=== PATIENT | female | born 1935 | race Caucasian/White ===

== ENCOUNTER 2017-07-11 14:52 | Observation (INO) | payer MEDICARE ==
[2017-07-11 15:41] LABS: ABSOLUTE EOSINOPHILS # (AUTO) 0.2 10^3/uL (0.0-0.6); ABSOLUTE LYMPHOCYTES (AUTO) 1.6 10^3/uL (0.5-4.7); ABSOLUTE MONOCYTES (AUTO) 0.6 10^3/uL (0.1-1.4); ABSOLUTE NEUT (AUTO) 6.9 10^3/uL (1.7-8.2); BASOPHILS % (AUTO) 0.5 % (0-2); EOSINOPHILS % (AUTO) 1.7 % (0-6); HEMATOCRIT 37.8 % (36.0-47.0); HEMOGLOBIN 13.2 g/dL (12.0-15.5); HGB HCT DIFFERENCE 1.8; LYMPHOCYTES % (AUTO) 17.3 % (13-45); MEAN CORPUSCULAR HEMOGLOBIN 29.9 pg (27.0-33.4); MEAN CORPUSCULAR HGB CONC 34.8 g/dL (32.0-36.0); MEAN CORPUSCULAR VOLUME 86 fl (80-97); MONOCYTES % (AUTO) 6.8 % (3-13); RED CELL DISTRIBUTION WIDTH 14.5 % (11.5-14.0); SEGMENTED NEUTROPHILS % (AUTO) 73.7 % (42-78); WHITE BLOOD COUNT 9.4 10^3/uL (4.0-10.5)
--- NOTE | 2017-07-11 15:43 | ER Document Report ---
ED General - General Chief Complaint: S/S of Possible Stroke Stated Complaint: SLURRED SPEECH Time Seen by Provider: 07/11/17 15:10 Information source: Patient Notes: This is a 82-year-old female history of CVA affecting the left side. This happened 17 years ago. Otherwise pretty unremarkable health. Did have a trauma within the last 2 months. Has pelvic fractures. Was hospitalized in [facility]. Has been home for approximately 2 weeks. Began eating lunch today approximately 4 hours prior to arrival. Began having trouble keeping the soup in her mouth and had some slurred speech. She did not really want to tell anybody. Finally told her and then her forced her to come in. Patient states that all of her symptoms have resolved. - HPI Onset: Just prior to arrival Onset/Duration: Sudden Quality of pain: No pain Associated symptoms: None Exacerbated by: Denies Relieved by: Denies Similar symptoms previously: Yes Past Medical History - General Information source: Patient - Social History Smoking Status: Never Smoker Frequency of alcohol use: None Drug Abuse: None Family History: Reviewed & Not Pertinent Review of Systems - Review of Systems Constitutional: No symptoms reported EENT: No symptoms reported Cardiovascular: No symptoms reported Respiratory: No symptoms reported Gastrointestinal: No symptoms reported Genitourinary: No symptoms reported Female Genitourinary: No symptoms reported Musculoskeletal: No symptoms reported Skin: No symptoms reported Hematologic/Lymphatic: No symptoms reported Neurological/Psychological: See HPI Physical Exam - Vital signs Vitals: Pulse Resp BP Pulse Ox 93 14 134/64 H 98 07/11/17 15:00 07/11/17 15:00 07/11/17 15:00 07/11/17 15:00 Course - Re-evaluation Re-evalutation: 07/11/17 15:43 She does not meet criteria for immediate thrombolytics. Had rapid resolution of symptoms. More likely representing TIA. Proceeding with stroke protocol at this time with CT head, cardiac workup. Cardiac monitoring. Patient may need to be admitted. 07/11/17 16:54 Consulted hospitalist. Will admit at this time. Family and patient is comfortable with this plan. - Vital Signs Vital signs: Temp Pulse Resp BP Pulse Ox 97.9 F 93 23 H 115/95 H 99 07/11/17 15:01 07/11/17 15:00 07/11/17 15:01 07/11/17 15:01 07/11/17 15:01 - Laboratory Result Diagrams: 07/11/17 15:26 07/11/17 15:26 Laboratory results interpreted by me: 07/11/17 07/11/17 07/11/17 15:26 15:26 16:11 RDW 14.5 H Sodium 134.9 L Chloride 96 L Alkaline Phosphatase 135 H Urine Blood SMALL H Ur Leukocyte Esterase MODERATE H - EKG Interpretation by Me EKG shows normal: Sinus rhythm, [place], Intervals, QRS Complexes, ST-T Waves Rhythm: PVC's Discharge - Discharge Clinical Impression: TIA (transient ischemic attack) Qualifiers: Transient cerebral ischemia type: unspecified Qualified Code(s): G45.9 - Transient cerebral ischemic attack, unspecified Condition: Good Disposition: ADMITTED INPATIENT Admitting Provider: Hospitalist Unit Admitted: Telemetry - B[place]eed Referrals: FABIO LONG MD [Primary Care Provider] - Follow up as needed
[2017-07-11 15:59] LABS: ALANINE AMINOTRANSFERASE 29 U/L (9-52); ALKALINE PHOSPHATASE 135 U/L (38-126); ANION GAP 11 (5-19); ASPARTATE AMINO TRANSFERASE 23 U/L (14-36); BILIRUBIN,DIRECT 0.4 mg/dL (0.0-0.4); BILIRUBIN,TOTAL 0.7 mg/dL (0.2-1.3); BLOOD UREA NITROGEN 12 mg/dL (7-20); CALCIUM 9.5 mg/dL (8.4-10.2); CARBON DIOXIDE 28 mmol/L (22-30); CHLORIDE 96 mmol/L (98-107); CREATINE KINASE 52 U/L (30-135); CREATININE RESULT 0.77 mg/dL (0.52-1.25); GLUCOSE 105 mg/dL (75-110); POTASSIUM 4.1 mmol/L (3.6-5.0); SODIUM 134.9 mmol/L (137-145); TOTAL PROTEIN 6.8 g/dL (6.3-8.2)
--- NOTE | 2017-07-11 16:00 | RADIOLOGY REPORT (SQ) ---
EXAM DESCRIPTION: CHEST SINGLE VIEW COMPLETED DATE/TIME: 07/11/2017 3:51 pm REASON FOR STUDY: cva protocol COMPARISON: None. EXAM PARAMETERS: NUMBER OF VIEWS: One view. TECHNIQUE: Single frontal radiographic view of the chest acquired. RADIATION DOSE: NA LIMITATIONS: None. FINDINGS: LUNGS AND PLEURA: No opacities, masses or pneumothorax. No pleural effusion. MEDIASTINUM AND HILAR STRUCTURES: No masses. Contour normal. HEART AND VASCULAR STRUCTURES: Heart normal in size. Normal vasculature. BONES: Old healed left lateral rib fractures. HARDWARE: None in the chest. OTHER: No other significant finding. IMPRESSION: No acute changes TECHNICAL DOCUMENTATION: JOB ID: [id number] [employer]- All Rights Reserved
[2017-07-11 16:11] LABS: CREATINE KINASE MB 1.21 ng/mL (<4.55); TROPONIN I 0.013 ng/mL
--- NOTE | 2017-07-11 16:14 | RADIOLOGY REPORT (SQ) ---
EXAM DESCRIPTION: CT HEAD WITHOUT COMPLETED DATE/TIME: 07/11/2017 3:54 pm REASON FOR STUDY: cva protocol COMPARISON: None. TECHNIQUE: Axial images acquired through the brain without intravenous contrast. Images reviewed wi th bone, brain and subdural windows. Images stored on PACS. All CT scanners at this facility use dose modulation, iterative reconstruction, and/or weight based d osing when appropriate to reduce radiation dose to as low as reasonably achievable (ALARA). [facility]: Dose Right [facility]: CareDose [facility]: Dose Right [facility]: Teradose 4D [facility]: TEAM INTERVAL RADIATION DOSE: 64 mGy. LIMITATIONS: None. FINDINGS: VENTRICLES: Normal size and contour. CEREBRUM: No masses. No hemorrhage. No midline shift. No evidence for acute infarction. Extensive low attenuation in the bifrontal and biparietal white matter from chronic small vessel ischemic simpson e. More focal lacunar infarcts are present in the bilateral basal ganglia and right and left thalam us CEREBELLUM: No masses. No hemorrhage. No alteration of density. No evidence for acute infarction. EXTRAAXIAL SPACES: No fluid collections. No masses. ORBITS AND GLOBE: No intra- or extraconal masses. Normal contour of globe without masses. CALVARIUM: No fracture. PARANASAL SINUSES: No fluid or mucosal thickening. SOFT TISSUES: No mass or hematoma. OTHER: Heavily calcified parasellar carotid arteries. Findings were discussed with Dr. Wellington, 1555 hours 07/11/2017 IMPRESSION: No CT evidence of acute large territory ischemic change or acute intracranial hemorrhage . Extensive white matter disease with multiple old deep brain lacunar infarcts. EVIDENCE OF ACUTE STROKE: NO. COMMENT: Quality ID # [id number]: Final reports with documentation of one or more dose reduction techniques (e.g., Automated exposure control, adjustment of the mA and/or kV according to patient size, use of iterative reconstruction technique) TECHNICAL DOCUMENTATION: JOB ID: [id number] [employer]- All Rights Reserved
[2017-07-11 16:41] LABS: APPEARANCE,URINE SLIGHTLY-CLOUDY; BILIRUBIN,URINE NEGATIVE (NEGATIVE); GLUCOSE, URINE NEGATIVE (NEGATIVE); KETONES,URINE NEGATIVE (NEGATIVE); LEUKOCYTE ESTERASE,URINE MODERATE (NEGATIVE); NITRITE,URINE NEGATIVE (NEGATIVE); PROTEIN,URINE NEGATIVE (NEGATIVE); URINE SPECIFIC GRAVITY 1.011; UROBILINOGEN,URINE NEGATIVE mg/dL (<2.0)
[2017-07-11] MEDS ORDERED: ONDANSETRON 4 MG TAB.RAPDIS PO PRN (17:52)
[2017-07-11] MEDS ORDERED: ACETAMINOPHEN 325 MG TABLET PO PRN (17:52)
[2017-07-11] MEDS ORDERED: ONDANSETRON HCL INJ/PF 4 MG/2 ML SDV IV PRN (17:52)
--- NOTE | 2017-07-11 18:06 | PDOC H&P ---
History of Present Illness Admission Date/PCP: 07/11/17 17:12 FABIO LONG MD Patient complains of: Drooling and trouble speaking. History of Present Illness: CATINA VEGA is a 82 year old female who has a history of a previous CVA and has been taking aspirin every other day who presents with dysarthria and drooling. The patient was sitting at a table with her and she began to have trouble speaking and was drooling from her mouth. The 's vision is very poor and he was unable to see if she had any facial droop. She also reported having some problems using her right hand because of weakness as well as some numbness. This lasted approximately 3 minutes and resolved. She had another episode about 15 minutes later that also resolved spontaneously. The patient denied have any visual loss. She denied any loss of consciousness. She denied any dysphasia. She denies any weakness or sensory changes in her legs. The patient had a head CT emergency room that was normal. The patient has been taking aspirin but has only been taking it every other day because of a history of bleeding. She reports that her primary care doctor recommended however that she take it on a daily basis. She has been taking Plavix also on a daily basis. Past Medical History Cardiac Medical History: Reports: Hyperlipidema, Hypertension Pulmonary Medical History: Reports: None EENT Medical History: Reports: Cataracts Neurological Medical History: Reports: Ischemic CVA Endocrine Medical History: Reports: None Renal/ Medical History: Reports: None Malignancy Medical History: Reports: None GI Medical History: Reports: None Musculoskeltal Medical History: Reports: None Skin Medical History: Reports: None Psychiatric Medical History: Reports: None Traumatic Medical History: Reports: None Hematology: Reports: None Infectious Medical History: Reports: None Past Surgical History Past Surgical History: Reports: Hysterectomy Social History Information Source: Patient Lives with: Spouse/Significant other Smoking Status: Never Smoker Frequency of Alcohol Use: None Hx Recreational Drug Use: No Drugs: None - Advance Directive Resuscitation Status: Full Code Family History Family History: Mother at age 89 and had CVAs prior to her . Father at age 81 and had Parkinson's disease. Parental Family History Reviewed: Yes Children Family History Reviewed: No Sibling(s) Family History Reviewed.: No Medication/Allergy Home Medications: Clopidogrel Bisulfate [Plavix 75 mg Tablet] 75 mg PO DAILY 07/11/17 Hydrochlorothiazide [Hydrodiuril 25 mg Tablet] 12.5 mg PO ASDIR PRN 07/11/17 Metoprolol Succinate [Toprol Xl 50 mg Tab.sr] 50 mg PO Q12 07/11/17 Simvastatin [Zocor 20 mg Tablet] 20 mg PO DAILY@1200 07/11/17 Review of Systems Constitutional: ABSENT: chills, fever(s), headache(s), weight gain, weight loss Eyes: ABSENT: visual disturbances Ears: ABSENT: hearing changes Cardiovascular: ABSENT: chest pain, dyspnea on exertion, edema, orthropnea, palpitations Respiratory: ABSENT: cough, hemoptysis Gastrointestinal: ABSENT: abdominal pain, constipation, diarrhea, hematemesis, hematochezia, nausea, vomiting Genitourinary: ABSENT: dysuria, hematuria Musculoskeletal: ABSENT: joint swelling Integumentary: ABSENT: rash, wounds Neurological: PRESENT: as per HPI Psychiatric: ABSENT: anxiety, depression Endocrine: ABSENT: cold intolerance, heat intolerance, polydipsia, polyuria Hematologic/Lymphatic: ABSENT: easy bleeding, easy bruising Physical Exam Vital Signs: Temp Pulse Resp BP Pulse Ox 97.9 F 93 23 H 115/95 H 99 07/11/17 15:01 07/11/17 15:00 07/11/17 15:01 07/11/17 15:01 07/11/17 15:01 General appearance: PRESENT: no acute distress, well-developed, well-nourished Head exam: PRESENT: atraumatic, normocephalic Eye exam: PRESENT: conjunctiva pink, EOMI, PERRLA. ABSENT: scleral icterus Ear exam: PRESENT: normal external ear exam Mouth exam: PRESENT: moist, tongue midline Neck exam: ABSENT: carotid bruit, JVD, lymphadenopathy, thyromegaly Respiratory exam: PRESENT: clear to auscultation bandar. ABSENT: rales, rhonchi, wheezes Cardiovascular exam: PRESENT: RRR. ABSENT: diastolic murmur, rubs, systolic murmur Pulses: PRESENT: normal dorsalis pedis pul Vascular exam: PRESENT: normal capillary refill GI/Abdominal exam: PRESENT: normal bowel sounds, soft. ABSENT: distended, guarding, mass, organolmegaly, rebound, tenderness Rectal exam: PRESENT: deferred Extremities exam: ABSENT: calf tenderness, clubbing, pedal edema Neurological exam: PRESENT: alert, awake, oriented to person, oriented to place , oriented to time, oriented to situation, CN II-XII grossly intact. ABSENT: motor sensory deficit Psychiatric exam: PRESENT: appropriate affect Skin exam: PRESENT: dry, intact, warm. ABSENT: cyanosis, rash Results Impressions: Chest X-Ray 07/11/17 15:10 IMPRESSION: No acute changes Head CT 07/11/17 15:10 IMPRESSION: No CT evidence of acute large territory ischemic change or acute intracranial hemorrhage. Extensive white matter disease with multiple old deep brain lacunar infarcts. EVIDENCE OF ACUTE STROKE: NO. Assessment & Plan - Diagnosis (1) TIA (transient ischemic attack) Qualifiers: Transient cerebral ischemia type: unspecified Qualified Code(s): G45.9 - Transient cerebral ischemic attack, unspecified Is this a current diagnosis for this admission?: Yes Plan: The patient has been taking Plavix daily and aspirin every other day. Given the TIA symptoms would recommend that we take aspirin every day along with Plavix on a daily basis. Will obtain a MRI, carotid Doppler, echocardiogram. The patient has had resolution of her symptoms. (2) Hypertension Is this a current diagnosis for this admission?: Yes Plan: We will continue with the metoprolol. (3) Hyperlipidemia Is this a current diagnosis for this admission?: Yes Plan: We will continue with the outpatient dose of Zocor. - Time Time Spent: 50 to 70 Minutes - Plan Summary Plan Summary: Patient is admitted as an observation.
[2017-07-11] MEDS: METOPROLOL SUCCINATE 50 MG TAB.SR.24H PO SCH (21:25)
[2017-07-11] MEDS ORDERED: ATORVASTATIN CALCIUM 40 MG TABLET PO SCH (22:00)
--- NOTE | 2017-07-11 23:15 | RADIOLOGY REPORT (SQ) ---
EXAM DESCRIPTION: MRI HEAD COMBO COMPLETED DATE/TIME: 07/11/2017 8:45 pm REASON FOR STUDY: dysarthria COMPARISON: None. TECHNIQUE: Multiplanar imaging includes noncontrasted T1, T2, FLAIR, Diffusion with ADC map and post gadolinium contrast T1 sequences. Images stored on PACS. CONTRAST TYPE AND DOSE: 10 mL Multihance. RENAL FUNCTION: GFR > 60. LIMITATIONS: None. FINDINGS: ANATOMY: No anomalies. Normal vascular flow voids. Pituitary fossa normal. CSF SPACES: Atrophy-induced prominence of CSF spaces and ventricles. CEREBRUM: High-signal intensity lesions scattered throughout the white matter on FLAIR imaging with d istribution suggesting chronic micro-vascular ischemic change. No evidence of acute hemorrhage, mass, extraaxial fluid collection or acute ischemic change. No enhancing lesions. POSTERIOR FOSSA: No signal alteration. No hemorrhage. No edema, masses, or mass effect. Internal juan tory canals, cerebello-pontine angles, mastoids normal. No enhancing lesions. ORBITS: No masses. Globes normal. PARANASAL SINUSES: No fluid levels. Mucosa normal. DIFFUSION: No evidence of recent infarct. OTHER: No other significant finding. IMPRESSION: No evidence of recent infarct. No enhancing lesions. High-signal intensity lesions scatt ered throughout the white matter on FLAIR imaging with distribution suggesting chronic micro-vascular ischemic change. Right sphenoid sinusitis. EVIDENCE OF ACUTE STROKE: NO. TECHNICAL DOCUMENTATION: JOB ID: [id number] [place]-72 2010 [employer]- All Rights Reserved
--- NOTE | 2017-07-12 08:13 | EKG REPORT ---
SEVERITY:- ABNORMAL ECG - SINUS RHYTHM MULTIPLE VENTRICULAR PREMATURE COMPLEXES CONSIDER OLD INFERIOR AR : Confirmed by: Lamont Velazquez MD 12-Jul-2017 08:11:58
[2017-07-12] MEDS ORDERED: ASPIRIN 325 MG TABLET, ENT COATED PO SCH (10:00)
[2017-07-12] MEDS ORDERED: CLOPIDOGREL BISULFATE 75 MG TABLET PO SCH (10:00)
[2017-07-12] MEDS: METOPROLOL SUCCINATE 50 MG TAB.SR.24H PO SCH (10:42)
[2017-07-12] MEDS ORDERED: CIPROFLOXACIN HCL 500 MG TABLET PO ONE (12:00)
[2017-07-12] MEDS ORDERED: SIMVASTATIN 10 MG TABLET PO SCH ×2 (12:00→22:00)
--- NOTE | 2017-07-12 12:42 | RADIOLOGY REPORT (SQ) ---
EXAM DESCRIPTION: CAROTID DOPPLER COMPLETED DATE/TIME: 07/12/2017 12:32 pm REASON FOR STUDY: tia COMPARISON: None. TECHNIQUE: Grayscale ultrasound, Doppler velocity and spectra, and color Doppler images acquired of the extra-cranial carotid and vertebral arteries. Images stored on PACS. LIMITATIONS: None. FINDINGS: RIGHT CAROTID CCA Velocities: Within normal limits. ICA Velocities Peak systolic 0.84 m/s. End diastolic 0.11 m/s. Proximal ICA/CCA peak systolic ratio 0.8. Spectra normal. No significant plaque. LEFT CAROTID CCA Velocities: Within normal limits. ICA Velocities Peak systolic 0.63 m/s. End diastolic 0.07 m/s. Proximal ICA/CCA peak systolic ratio 0.8. Spectra normal. No significant plaque. VERTEBRAL ARTERIES: Antegrade flow. Normal waveforms. SUBCLAVIAN ARTERIES: No finding. OTHER: No other significant finding. IMPRESSION: NO HEMODYNAMICALLY SIGNIFICANT STENOSIS. COMMENT: Quality ID #[id number]: Velocity criteria are extrapolated from the diameter data as defined by t he Society of Radiologists in Ultrasound Consensus Conference. Radiology 2003: 229; 340-346. TECHNICAL DOCUMENTATION: JOB ID: [id number] [employer]- All Rights Reserved
[2017-07-12 13:29] VITALS: BP 128/58
--- NOTE | 2017-07-12 13:57 | XCELERA REPORT ---
[address] [address] Transthoracic Echocardiogram Report Name: CATINA VEGA Age: 82 yrs Gender: Female : 1935 Patient Status: Inpatient Patient Location: [address] [place] [address] Study Date: 07/12/2017 11:29 AM Height: 64 in Weight: 160 lb BSA: 1.8 m2 Procedure: A complete two-dimensional transthoracic echocardiogram was performed (2D, M-mode, spectral and color flow Doppler). The study was technically difficult with many images being suboptimal in quality. Reason For Study: tia Ordering Physician: EDGARD THOMPSON Performed By: Brunilda Sands Interpretation Summary The left ventricular ejection fraction is normal. Doppler measurements suggest pseudonormalized left ventricular relaxation, which is associated with grade II/IV or mild to moderate diastolic dysfunction There is mild concentric left ventricular hypertrophy. The left ventricle is grossly normal size. Regional wall motion abnormalities cannot be excluded due to limited visualization. The right ventricular systolic function is normal. The left atrial size is normal. The right atrium is normal in size There is a trace to mild amount of mitral regurgitation There is no mitral valve stenosis. There is no aortic valve stenosis No aortic regurgitation is present. There is a trace or physiologic amount of tricuspid regurgitation Tricuspid regurgitation jet envelope not well defined to measure RV systolic pressure accurately. The aortic root is not well visualized. The inferior vena cava appeared normal and decreased > 50% with respiration (RAP 5-10 mmHg) There is no pericardial effusion. MMode/2D Measurements & Calculations RVDd: 3.3 cm LVIDd: 3.5 cm FS: 34.4 % Ao root diam: 2.5 cm IVSd: 0.98 cm LVIDs: 2.3 cm EDV(Teich): 51.9 ml LVPWd: 1.0 cm ESV(Teich): 18.5 ml Ao root area: 4.9 cm2 EF(Teich): 64.5 % LA dimension: 3.5 cm Doppler Measurements & Calculations MV E max vandana: MV P1/2t max vandana: Ao V2 max: AI max vandana: 103.1 cm/sec 101.7 cm/sec 138.1 cm/sec 278.0 cm/sec MV A max vandana: MV P1/2t: 91.0 msec Ao max PG: AI max P.0 cm/sec 7.6 mmHg 30.9 mmHg MV E/A: 0.67 MVA(P1/2t): 2.4 cm2 AI dec slope: MV dec slope: 327.1 cm/sec2 98.5 cm/sec2 AI P1/2t: 826.7 msec LV V1 max PG: PA V2 max: TR max vandana: 3.9 mmHg 58.7 cm/sec 237.5 cm/sec LV V1 max: PA max P.4 mmHg TR max P.2 cm/sec 22.6 mmHg Left Ventricle The left ventricle is grossly normal size. There is mild concentric left ventricular hypertrophy. The left ventricular ejection fraction is normal. Doppler measurements suggest pseudonormalized left ventricular relaxation, which is associated with grade II/IV or mild to moderate diastolic dysfunction. Regional wall motion abnormalities cannot be excluded due to limited visualization. Right Ventricle The right ventricle is grossly normal size. There is normal right ventricular wall thickness. The right ventricular systolic function is normal. Atria The right atrium is normal in size. The left atrial size is normal. Interarterial septum not well visualized and not well dopplered. Cannot comment on ASD/PFO presence. Mitral Valve There is mild mitral leaflet calcification. There is mild mitral annular calcification. There is no mitral valve stenosis. There is a trace to mild amount of mitral regurgitation. Aortic Valve The aortic valve is mildly calcified. There is no aortic valve stenosis. No aortic regurgitation is present. Tricuspid Valve The tricuspid valve is not well visualized, but is grossly normal. There is no tricuspid stenosis. There is a trace or physiologic amount of tricuspid regurgitation. Tricuspid regurgitation jet envelope not well defined to measure RV systolic pressure accurately. Pulmonic Valve The pulmonic valve is not well visualized. Great Vessels The aortic root is not well visualized. The inferior vena cava appeared normal and decreased > 50% with respiration (RAP 5-10 mmHg). Effusions There is no pericardial effusion. Incidental Findings No definite cardiac source of CVA/TIA noted on this particular trans- thoracic study. Consider MARY if clinically indicated. May consider mobile cardiac telemetry monitoring (MCT) for ruling out transient AFIB. : EDGARD THOMPSON > Chacha Albrecht
--- NOTE | 2017-07-12 14:46 | PDOC DISCHARGE SUMMARY ---
General - Admit/Disc Date/PCP Admission Date/Primary Care Provider: 07/11/17 17:52 FABIO LONG MD Discharge Date: 07/12/17 - Discharge Diagnosis (1) TIA (transient ischemic attack) Is this a current diagnosis for this admission?: Yes Summary: Patient has been instructed to take her aspirin every day instead of every other day. (2) Hypertension Is this a current diagnosis for this admission?: Yes (3) Hyperlipidemia Is this a current diagnosis for this admission?: Yes - Additional Information Resuscitation Status: Full Code Discharge Diet: As Tolerated, Cardiac Discharge Activity: Activity As Tolerated, Balance Activity w/Rest Home Medications: Clopidogrel Bisulfate [Plavix 75 mg Tablet] 75 mg PO DAILY 07/11/17 Metoprolol Succinate [Toprol Xl 50 mg Tab.sr] 50 mg PO Q12 07/11/17 Simvastatin [Zocor 20 mg Tablet] 20 mg PO DAILY@1200 07/11/17 Aspirin [Ecotrin 325 mg EC Tablet] 325 mg PO DAILY tabec 07/12/17 Ciprofloxacin HCl [Cipro 500 mg Tablet] 500 mg PO Q12 #10 tablet 07/12/17 Hydrochlorothiazide 6.25 mg PO DAILY MDD 12.5MG PER FEET/ANKLE SWELLING History of Present Illness History of Present Illness: CATINA VEGA is a 82 year old female who has a history of a previous CVA and has been taking aspirin every other day who presents with dysarthria and drooling. The patient was sitting at a table with her and she began to have trouble speaking and was drooling from her mouth. The 's vision is very poor and he was unable to see if she had any facial droop. She also reported having some problems using her right hand because of weakness as well as some numbness. This lasted approximately 3 minutes and resolved. She had another episode about 15 minutes later that also resolved spontaneously. The patient denied have any visual loss. She denied any loss of consciousness. She denied any dysphasia. She denies any weakness or sensory changes in her legs. The patient had a head CT emergency room that was normal. The patient has been taking aspirin but has only been taking it every other day because of a history of bleeding. She reports that her primary care doctor recommended however that she take it on a daily basis. She has been taking Plavix also on a daily basis. Hospital Course Hospital Course: 82-year-old female who presented with drooling, dysarthria and right hand weakness. Patient had resolution of the symptoms prior to arrival in the emergency room. Is felt the patient most likely suffered a TIA. She had a head CT which was unremarkable. She was admitted and monitored and had no cardiac arrhythmias. MRI of the brain showed no acute event. Carotid Dopplers were unremarkable and the echocardiogram showed no evidence for thrombus. The patient had been taking Plavix along with aspirin every other day. She was instructed to continue with Plavix and to also increase her aspirin to 325 mg every day. Patient had complete resolution of her symptoms and all of her other medical problems were stable during this hospitalization. She is discharged home and will follow up with her primary care doctor in 2 weeks. Physical Exam Vital Signs: Temp Pulse Resp BP Pulse Ox 98.3 F 66 16 128/58 H 100 07/12/17 13:25 07/12/17 13:25 07/12/17 13:25 07/12/17 13:25 07/12/17 13:25 Intake & Output 07/11/17 07/12/17 07/13/17 06:59 06:59 06:59 Intake Total 100 Balance 100 Weight 72.9 kg General appearance: PRESENT: no acute distress Eye exam: PRESENT: conjunctiva pink. ABSENT: scleral icterus Neck exam: ABSENT: JVD Respiratory exam: PRESENT: clear to auscultation bandar. ABSENT: rales, rhonchi, wheezes Cardiovascular exam: PRESENT: RRR. ABSENT: diastolic murmur, rubs, systolic murmur GI/Abdominal exam: PRESENT: normal bowel sounds, soft. ABSENT: distended, guarding, mass, organolmegaly, rebound, tenderness Extremities exam: ABSENT: calf tenderness, clubbing, pedal edema Neurological exam: PRESENT: alert, awake, oriented to person, oriented to place , oriented to time, oriented to situation, CN II-XII grossly intact. ABSENT: motor sensory deficit Psychiatric exam: PRESENT: appropriate affect Skin exam: PRESENT: dry, intact, warm. ABSENT: cyanosis, rash Results Impressions: Chest X-Ray 07/11/17 15:10 IMPRESSION: No acute changes Head CT 07/11/17 15:10 IMPRESSION: No CT evidence of acute large territory ischemic change or acute intracranial hemorrhage. Extensive white matter disease with multiple old deep brain lacunar infarcts. EVIDENCE OF ACUTE STROKE: NO. Head MRI 07/11/17 17:55 IMPRESSION: No evidence of recent infarct. No enhancing lesions. High-signal intensity lesions scattered throughout the white matter on FLAIR imaging with distribution suggesting chronic micro-vascular ischemic change. Right sphenoid sinusitis. EVIDENCE OF ACUTE STROKE: NO. Carotid Doppler Study 07/12/17 00:00 IMPRESSION: NO HEMODYNAMICALLY SIGNIFICANT STENOSIS. Qualifiers PATEINT BEING DISCHARGED WITH ANY OF THE FOLLOWING DIAGNOSIS?: Stroke Stroke Pt being discharged on Anti-thrombolytic therapy?: Yes Stroke Pt being discharged on Anti-coagulation therapy?: No Reason(s) for not prescribing Anti-coagulation therapy:: Not indicated Stroke Pt being discharged on Statins?: Yes Plan Discharge Plan: Patient is discharged home. Will follow-up primary care in 2 weeks. Time Spent: Less than 30 Minutes
[2017-07-12] MEDS ORDERED: CIPROFLOXACIN HCL 500 MG TABLET PO SCH (22:00)
== END 2017-07-12 14:36 | disposition home or self-care (01) ==
LOC: ER 14:52 → INTOOBSV 17:12 → EH 17:12 → UNDOADMOB 17:12 → EH 17:52 → 3S 21:00
PROVIDERS: ADMIT Internal Medicine; ATTEND Internal Medicine
DX: G45.9 Transient cerebral ischemic attack, unspecified (principal); I10 Essential (primary) hypertension; E78.5 Hyperlipidemia, unspecified; I69.30 Unspecified sequelae of cerebral infarction; Z79.82 Long term (current) use of aspirin; Z79.899 Other long term (current) drug therapy; Z79.02 Long term (current) use of antithrombotics/antiplatelets; Z82.3 Family history of stroke; Z82.0 Family history of epilepsy and other diseases of the nervous system
CPT/HCPCS: 93005; 99285; 36415; 87086; 82553; 82550; 85025; 87088; 80053; 81001; 84484; 87186; 93306; 93880; 70553; 71010; 70450; 93010; G0378 ×3; A9577; A9270 ×6; J3490 ×2; S0119

== ENCOUNTER 2018-09-12 12:41 | Observation (INO) | payer MEDICARE ==
--- NOTE | 2018-09-12 12:55 | ER Document Report ---
ED Neuro Symptoms/Deficit - General Stated Complaint: POSSIBLE STROKE Time Seen by Provider: 09/12/18 12:45 TRAVEL OUTSIDE OF THE [place] IN LAST 30 DAYS: No - HPI Notes: Patient is a 83-year-old female that presents to the emergency department for chief complaint of speech issues. Patient was at home with her when she started to have difficulty speaking. He states she was normal until 1045 this morning when she could not come up with words and was slurring her speech. Patient has a history of stroke with no residual deficit. EMS states that she has been evaluated on multiple occasions for TIAs. They report no head injury or falls. Patient currently has no complaints. She denies chest pain, shortness of breath, headache, vision changes, numbness and weakness Past Medical History: Stroke, TIA Past Surgical History: Reviewed in chart Social History: Reviewed in chart Family History: Reviewed and noncontributory for presenting illness Allergies: Reviewed, see documented allergy list. REVIEW OF SYSTEMS: CONSTITUTIONAL : No fever No chills No diaphoresis No recent illness EENT: No vision changes No congestion No sore throat CARDIOVASCULAR: No chest pain No palpitations RESPIRATORY: No shortness of breath No cough No difficulty breathing GASTROINTESTINAL: No abdominal pain No nausea No vomiting No diarrhea GENITOURINARY: No dysuria No hematuria No difficulty urinating MUSCULOSKELETAL: No back pain No leg pain No arm pain SKIN: No rashes No lesions LYMPHATIC: No swollen, enlarged glands. NEUROLOGICAL: No lightheadedness No headache No weakness No paresthesias Speech issues PSYCHIATRIC: No anxiety No depression PHYSICAL EXAMINATION: Vital signs reviewed, nursing noted reviewed. GENERAL: Well-appearing, well-nourished and in no acute distress. HEAD: Atraumatic, normocephalic. EYES: Eyes appear normal, extraocular movements intact, sclera anicteric, conjunctiva are normal. ENT: nares patent, oropharynx clear without exudates. Moist mucous membranes. NECK: Normal range of motion, supple without lymphadenopathy LUNGS: Breath sounds clear to auscultation bilaterally and equal. No wheezes rales or rhonchi. HEART: Regular rate and rhythm without murmurs ABDOMEN: Soft, nontender, normoactive bowel sounds. No rebound, guarding, or rigidity. No masses appreciated. EXTREMITIES: Nontender, good range of motion, no pitting or edema. NEUROLOGICAL: NIH equals 2, mild a aphasia, mild disorientation. Moves all extremities spontaneously Motor and sensory grossly intact on exam. PSYCH: Normal mood, normal affect. SKIN: Warm, Dry, normal turgor, no rashes or lesions noted on exposed skin - Related Data Allergies/Adverse Reactions: No Known Allergies Allergy (Unverified 07/11/17 19:03) Past Medical History - Social History Smoking Status: Never Smoker Family History: Reviewed & Not Pertinent - Past Medical History Cardiac Medical History: Reports: Hx Hypercholesterolemia, Hx Hypertension Past Surgical History: Reports: Hx Hysterectomy - Immunizations Hx Diphtheria, Pertussis, Tetanus Vaccination: Yes Course - Re-evaluation Re-evalutation: 09/12/18 12:55 Vitals reviewed. Nursing notes reviewed. Patient has an NIH of 2 and is therefore not a candidate for TPA because of minor symptoms. She does have a aphasia which seems to be waxing and waning. She can answer questions appropriately at times and then is confabulating. 09/12/18 14:28 Patient reevaluated. Repeat NIH at 1425 is 0. Patient is able to name all objects I requested of her however she is still slow to respond. She has no focal deficits currently. Her family is now at bedside stating that she seems to be still acting slow to come up with words although she is able to obtain the word. Patient CT scan is negative. She was given aspirin for her stroke symptoms. The remainder of her workup is unremarkable. Patient will be admitted to the hospital for further telemetry monitoring. Case discussed with Dr. Fernandez Laboratory 09/12/18 09/12/18 09/12/18 13:03 13:05 13:05 WBC 12.5 H RBC 4.43 Hgb 13.7 Hct 39.5 MCV 89 MCH 30.9 MCHC 34.8 RDW 13.4 Plt Count 207 Seg Neutrophils % 75.5 Lymphocytes % 16.3 Monocytes % 7.3 Eosinophils % 0.7 Basophils % 0.2 Absolute Neutrophils 9.5 H Absolute Lymphocytes 2.0 Absolute Monocytes 0.9 Absolute Eosinophils 0.1 Absolute Basophils 0.0 PT 12.4 INR 0.88 APTT 28.9 Sodium Potassium Chloride Carbon Dioxide Anion Gap BUN Creatinine Est GFR ( Amer) Est GFR (Non-Af Amer) Glucose POC Glucose 105 Calcium Total Bilirubin Direct Bilirubin Neonat Total Bilirubin Neonat Direct Bilirubin Neonat Indirect Bili AST ALT Alkaline Phosphatase Creatine Kinase CK-MB (CK-2) Troponin I Total Protein Albumin 09/12/18 09/12/18 13:05 13:05 WBC RBC Hgb Hct MCV MCH MCHC RDW Plt Count Seg Neutrophils % Lymphocytes % Monocytes % Eosinophils % Basophils % Absolute Neutrophils Absolute Lymphocytes Absolute Monocytes Absolute Eosinophils Absolute Basophils PT INR APTT Sodium 139.8 Potassium 3.4 L Chloride 104 Carbon Dioxide 26 Anion Gap 10 BUN 10 Creatinine 0.78 Est GFR ( Amer) > 60 Est GFR (Non-Af Amer) > 60 Glucose 111 H POC Glucose Calcium 9.0 Total Bilirubin 0.6 Direct Bilirubin 0.1 Neonat Total Bilirubin Not Reportable Neonat Direct Bilirubin Not Reportable Neonat Indirect Bili Not Reportable AST 25 ALT 36 Alkaline Phosphatase 110 Creatine Kinase 68 CK-MB (CK-2) 1.69 Troponin I < 0.012 Total Protein 5.8 L Albumin 3.8 Chest X-Ray 09/12/18 12:43 IMPRESSION: NO ACUTE RADIOGRAPHIC FINDING IN THE CHEST. Head CT 09/12/18 12:43 IMPRESSION: CHRONIC CHANGES OF ATROPHY AND MICROVASCULAR ISCHEMIA. NO ACUTE PROCESS. EVIDENCE OF ACUTE STROKE: NO. who accepts admission. - Laboratory Result Diagrams: 09/12/18 13:05 09/12/18 13:05 - EKG Interpretation by Me Additional EKG results interpreted by me: 09/12/18 14:30 Interpreted by myself 1314: Normal sinus rhythm, rate 80, normal axis, no ectopy, no ST elevation ED NIH Stroke Scale - NIH Stroke Scale When completed:: Before Alteplase *: 1. NIH scale should be completed with appropriate accompanying assessment tools. *: 2. The NIH should reflect what the patient is capable of doing and should not be coached by the clinician. 1a. Level of Consciousness: 0=Alert;keenly responsive -: 1=Drowsy -: 2=Obtunded -: 3=Coma/unresponsive or reflex to noxious stimuli. 1a. Responses: 0 1b. Orientation Questions: a. What month is it? -: b. How old are you? -: 0=Answers both questions correctly. -: 1=Answers one question correctly or patient is intubated or has orotracheal trauma. -: 2=Answers neither question correctly. 1b. Responses: 1 1c. Response to commands: a. Open and close eyes? -: b. Long Term Care Pharmacist and release hand? -: Credit is given despite weakness. Demonstration of task is permitted. Substitute command if hands cannot be used. -: 0=Performs both tasks correctly -: 1=Performs one task correctly -: 2=Performs neither task correctly 1c. Responses: 0 2. Gaze: Establish eye contact and instruct patient to "Follow my finger" -: 0=Normal -: 1=Partial gaze palsy. Gaze is abnormal in one or both eyes, but where forced deviation or total gaze paresis is not present. -: 2=Forced deviation or total gaze paresis. 2. Responses: 0 3. Visual Dotson: Sees fingers in all four quadrants. -: 0=No visual loss. -: 1=Partial hemianopsia. -: 2=Complete hemianopsia. -: 3=Bilateral hemianopsia (including Cortical blindness) 3. Responses: 0 4. Facial Movement: Instruct patient to: -: a. Show me your teeth -: b. Raise your eyebrows -: c. Close your eyes -: d. Smile -: 0=Normal symmetrical movement -: 1=Minor paralysis (flattened nasolabial fold, asymmetry on smiling). -: 2=Partial paralysis (total or near total paralysis of lower face). -: 3=Complete paralysis of upper and lower face 4. Responses: 0 5. Motor functions (left arm): Alternate sides and extend each arm with palms down (90 degrees if sitting or 45 degrees for supine). -: 0=No drift;limb holds for full 10 seconds. -: 1=Drift; limb holds but drifts down before full 10 seconds, but does not hit bed. -: 2=Some effort against gravity; limb cannot get to or maintain position. -: 3=No effort against gravity; limb falls. -: 4=No movement. -: UN=Amputation, joint fusion, explain in comments. 5. Responses (left arm): 0 5. Motor Functions (right arm): Alternate sides and extend each arm with palms down (90 degrees if sitting or 45 degrees for supine). -: 0=No drift;limb holds for full 10 seconds. -: 1=Drift; limb holds but drifts down before full 10 seconds, but does not hit bed. -: 2=Some effort against gravity; limb cannot get to or maintain position. -: 3=No effort against gravity; limb falls. -: 4=No movement. -: UN=Amputation, joint fusion, explain in comments. 5. Responses (right arm): 0 6. Motor Functions (left leg): With patient lying supine, alternate sides and extend each leg (30 degrees always while supine). -: 0=No drift, leg holds position for full 5 seconds -: 1=Drift; leg falls before full 5 seconds but does not hit bed. -: 2=Some effort against gravity, leg falls to bed but some effort against gravity. -: 3=No effort against gravity, leg falls to bed immediately. -: 4=No movement. -: UN=Amputation, joint fusion; explain in comments. 6. Responses (left leg): 0 6. Motor Functions (right leg): With patient lying supine, alternate sides and extend each leg (30 degrees always while supine). -: 0=No drift, leg holds position for full 5 seconds -: 1=Drift; leg falls before full 5 seconds but does not hit bed. -: 2=Some effort against gravity, leg falls to bed but some effort against gravity. -: 3=No effort against gravity, leg falls to bed immediately. -: 4=No movement. -: UN=Amputation, joint fusion; explain in comments. 6. Responses (right leg): 0 7. Limb Ataxia: With eyes open instruct patient to: -: a. "Touch your finger to your nose". -: b. "Touch your heel to your guerra" -: 0=Absent -: 1=Present in one limb. -: 2=Present in two limbs. -: UN=Amputation or joint fusion; explain in comments. 7. Responses: 0 8. Sensory: Test sensation using pinprick or noxious stimuli. Test as many body parts as possible. -: 0=Normal;no sensory loss -: 1=Mile to moderate sensory loss (patient feels pin prick but is less sharp on affected side). -: 2=Severe or total sensory loss. 8. Responses: 0 9. Best Language: Instruct patient to: -: a. "Describe what you see in this picture." -: b. "Name the items in this picture." -: c. "Read these sentences." -: 0=No aphasia, normal -: 1=Mild to moderate aphasia. -: 2=Severe aphasia -: 3=Mute, global aphasia, no usable speech or auditory comprehension. 9. Responses: 1 10. Articulation, Dysarthia: Instruct patient to: -: "Read these words" or "Repeat these words" -: 0=Normal -: 1=Mild to moderate; patient may slur some words but can be understood without difficulty. -: 2=Severe; patients speech so slurred as to be unintelligible in the absence of dysphasia. -: UN=Intubated or other physical barrier, explain in comments. 10. Responses: 0 11. Extinction or inattention: 0=No abnormality -: 1= Visual, tactile, auditory, spatial, or personal inattention or extinction to bilateral simulation in one or the sensory modalities. -: 2=Profound karlo-inattention or karlo-inattention to more than one modality; does not recognize own hand. 11. Responses: 0 Total Score: 2 Discharge - Discharge Clinical Impression: TIA (transient ischemic attack) Condition: Stable Disposition: ADMITTED OBSERVATION Admitting Provider: Hospitalist Unit Admitted: Telemetry Referrals: FABIO LONG MD [Primary Care Provider] - Follow up as needed
--- NOTE | 2018-09-12 13:08 | RADIOLOGY REPORT (SQ) ---
EXAM DESCRIPTION: CT HEAD WITHOUT COMPLETED DATE/TIME: 09/12/2018 12:50 pm REASON FOR STUDY: stroke s/s COMPARISON: None. TECHNIQUE: Axial images acquired through the brain without intravenous contrast. Images reviewed wi th bone, brain and subdural windows. Additional sagittal and coronal reconstructions were generated. Images stored on PACS. All CT scanners at this facility use dose modulation, iterative reconstruction, and/or weight based d osing when appropriate to reduce radiation dose to as low as reasonably achievable (ALARA). [facility]: Dose Right [facility]: CareDose [facility]: Dose Right [facility]: Teradose 4D [facility]: [employer]ic RADIATION DOSE: CT Rad equipment meets quality standard of care and radiation dose reduction techniq ues were employed. CTDIvol: 53.2 mGy. DLP: 937 mGy-cm.mGy. LIMITATIONS: None. FINDINGS: VENTRICLES: Prominent. CEREBRUM: No masses. No hemorrhage. No midline shift. Areas of low density in the white matter mos t likely due to chronic micro-vascular ischemic change. No evidence for acute infarction. CEREBELLUM: No masses. No hemorrhage. No alteration of density. No evidence for acute infarction. EXTRAAXIAL SPACES: Age-related involutional change. No fluid collections. No masses. ORBITS AND GLOBE: No intra- or extraconal masses. Normal contour of globe without masses. CALVARIUM: No fracture. PARANASAL SINUSES: No fluid or mucosal thickening. SOFT TISSUES: No mass or hematoma. OTHER: No other significant finding. IMPRESSION: CHRONIC CHANGES OF ATROPHY AND MICROVASCULAR ISCHEMIA. NO ACUTE PROCESS. EVIDENCE OF ACUTE STROKE: NO. COMMENT: Pertinent positive or negative findings of the imaging study reported as a CRITICAL EXAM kevan ROJAS DO at13:02 on 09/12/2018. Category of Critical Exam: Stroke alert. TECHNICAL DOCUMENTATION: JOB ID: [id number] Quality ID # [id number]: Final reports with documentation of one or more dose reduction techniques (e.g., Au tomated exposure control, adjustment of the mA and/or kV according to patient size, use of iterative reconstruction technique) 2010 [employer]- All Rights Reserved Reading location - IP/workstation name: [email or web address]
[2018-09-12 13:17] LABS: ABSOLUTE EOSINOPHILS # (AUTO) 0.1 10^3/uL (0.0-0.6); ABSOLUTE MONOCYTES (AUTO) 0.9 10^3/uL (0.1-1.4); ABSOLUTE NEUT (AUTO) 9.5 10^3/uL (1.7-8.2); BASOPHILS % (AUTO) 0.2 % (0-2); EOSINOPHILS % (AUTO) 0.7 % (0-6); HEMATOCRIT 39.5 % (36.0-47.0); HEMOGLOBIN 13.7 g/dL (12.0-15.5); LYMPHOCYTES % (AUTO) 16.3 % (13-45); MEAN CORPUSCULAR HEMOGLOBIN 30.9 pg (27.0-33.4); MEAN CORPUSCULAR HGB CONC 34.8 g/dL (32.0-36.0); MEAN CORPUSCULAR VOLUME 89 fl (80-97); MONOCYTES % (AUTO) 7.3 % (3-13); PLATELET COUNT 207 10^3/uL (150-450); RED BLOOD COUNT 4.43 10^6/uL (3.72-5.28); RED CELL DISTRIBUTION WIDTH 13.4 % (11.5-14.0); SEGMENTED NEUTROPHILS % (AUTO) 75.5 % (42-78); TOTAL CELLS COUNTED % (AUTO) 100 %; WHITE BLOOD COUNT 12.5 10^3/uL (4.0-10.5)
[2018-09-12 13:21] LABS: INTERNATIONAL RATION (INR) 0.88
[2018-09-12 13:22] LABS: PARTIAL THROMBOPLASTIN TIME 28.9 SEC (23.5-35.8)
[2018-09-12 13:24] LABS: PROTHROMBIN TIME 12.4 SEC (11.4-15.4)
--- NOTE | 2018-09-12 13:35 | RADIOLOGY REPORT (SQ) ---
EXAM DESCRIPTION: CHEST SINGLE VIEW COMPLETED DATE/TIME: 09/12/2018 12:52 pm REASON FOR STUDY: stroke s/s COMPARISON: None. EXAM PARAMETERS: NUMBER OF VIEWS: One view. TECHNIQUE: Single frontal radiographic view of the chest acquired. RADIATION DOSE: NA LIMITATIONS: None. FINDINGS: LUNGS AND PLEURA: No opacities, masses or pneumothorax. No pleural effusion. MEDIASTINUM AND HILAR STRUCTURES: No masses. Contour normal. HEART AND VASCULAR STRUCTURES: Heart normal in size. Normal vasculature. BONES: No acute findings. HARDWARE: None in the chest. OTHER: No other significant finding. IMPRESSION: NO ACUTE RADIOGRAPHIC FINDING IN THE CHEST. TECHNICAL DOCUMENTATION: JOB ID: [id number] [employer]- All Rights Reserved Reading location - IP/workstation name: [email or web address]
[2018-09-12 13:36] LABS: ALANINE AMINOTRANSFERASE 36 U/L (9-52); ALBUMIN 3.8 g/dL (3.5-5.0); ALKALINE PHOSPHATASE 110 U/L (38-126); ANION GAP 10 (5-19); ASPARTATE AMINO TRANSFERASE 25 U/L (14-36); BILIRUBIN,DIRECT 0.1 mg/dL (0.0-0.4); BILIRUBIN,TOTAL 0.6 mg/dL (0.2-1.3); BLOOD UREA NITROGEN 10 mg/dL (7-20); CARBON DIOXIDE 26 mmol/L (22-30); CHLORIDE 104 mmol/L (98-107); CREATINE KINASE 68 U/L (30-135); GLUCOSE 111 mg/dL (75-110); POTASSIUM 3.4 mmol/L (3.6-5.0); SODIUM 139.8 mmol/L (137-145); TOTAL PROTEIN 5.8 g/dL (6.3-8.2)
[2018-09-12 13:48] LABS: CREATINE KINASE MB 1.69 ng/mL (<4.55)
[2018-09-12 13:51] LABS: TROPONIN I < 0.012 ng/mL
[2018-09-12] MEDS ORDERED: ASPIRIN 81 MG TABLET, CHEWABLE PO ONE (14:16)
[2018-09-12] MEDS ORDERED: ACETAMINOPHEN 325 MG TABLET PO PRN (15:07)
[2018-09-12] MEDS ORDERED: ONDANSETRON HCL INJ/PF 4 MG/2 ML SDV IV PRN (15:07)
--- NOTE | 2018-09-12 15:35 | PDOC H&P ---
History of Present Illness Admission Date/PCP: 09/12/18 14:36 FABIO LONG MD Patient complains of: Slurred speech. History of Present Illness: CATINA VEGA is a 83 year old female with history of ischemic stroke with left sided weakness in 1999, hypertension, hyperlipidemia came to the emergency room with complaints of slurred speech around 930 this morning. According to the patient she developed slurred speech all of a sudden not associated with headaches no dizziness no syncope no nausea no vomiting's no chest pain no sinus issues no visual problems no hearing problems but because of the history of previous stroke decided to came to the hospital for further evaluation. In the emergency room CT head was done which was negative she was given aspirin and medical consult was called for the admission. Patient denies any problem with bowel movements or urination. Patient denies any numbness and weakness of the upper or lower extremities. Past Medical History Cardiac Medical History: Reports: Hyperlipidema, Hypertension Neurological Medical History: Reports: Ischemic CVA Past Surgical History Past Surgical History: Reports: Hysterectomy, Tubal Ligation, Other - Bladder tack Social History Smoking Status: Never Smoker Frequency of Alcohol Use: None Hx Recreational Drug Use: No Drugs: None - Advance Directive Resuscitation Status: Full Code Family History Family History: Reviewed & Not Pertinent Parental Family History Reviewed: Yes - Family history of colon cancer liver cancer strokes. Children Family History Reviewed: Yes Sibling(s) Family History Reviewed.: Yes Medication/Allergy Home Medications: Clopidogrel Bisulfate [Plavix 75 mg Tablet] 75 mg PO DAILY 07/11/17 Metoprolol Succinate [Toprol Xl 50 mg Tab.sr] 50 mg PO Q12 07/11/17 Simvastatin [Zocor 20 mg Tablet] 20 mg PO DAILY@1200 07/11/17 Aspirin [Ecotrin 325 mg EC Tablet] 325 mg PO DAILY tabec 07/12/17 Ciprofloxacin HCl [Cipro 500 mg Tablet] 500 mg PO Q12 #10 tablet 07/12/17 Hydrochlorothiazide 6.25 mg PO DAILY MDD 12.5MG PER FEET/ANKLE SWELLING 07/12/17 Allergies/Adverse Reactions: No Known Allergies Allergy (Unverified 07/11/17 19:03) Review of Systems Constitutional: ABSENT: fever(s), headache(s), night sweats, weight gain, weight loss Eyes: ABSENT: visual disturbances Ears: ABSENT: hearing changes Nose, Mouth, and Throat: ABSENT: sore throat Cardiovascular: ABSENT: chest pain, dyspnea on exertion, edema, orthropnea Respiratory: ABSENT: cough, dyspnea, hemoptysis Gastrointestinal: PRESENT: nausea. ABSENT: constipation, diarrhea, vomiting Genitourinary: ABSENT: difficulty urinating, dysuria, hematuria Musculoskeletal: ABSENT: back pain, joint swelling Integumentary: ABSENT: lesions Neurological: PRESENT: abnormal speech. ABSENT: abnormal gait, abnormal movements, confusion, convulsions, dizziness, focal weakness, memory loss, numbness, paresthesias, restless legs, syncope, tingling, tremor(s), vertigo, weakness Psychiatric: ABSENT: anxiety, depression, homidical ideation, suicidal ideation Physical Exam Vital Signs: Temp Pulse Resp BP Pulse Ox 76 18 117/99 H 94 09/12/18 12:55 09/12/18 14:00 09/12/18 12:55 09/12/18 14:00 Intake & Output 09/11/18 09/12/18 09/13/18 06:59 06:59 06:59 Weight 71 kg General appearance: PRESENT: no acute distress Head exam: PRESENT: atraumatic Eye exam: PRESENT: PERRLA Teeth exam: PRESENT: edentulous Neck exam: ABSENT: carotid bruit, JVD, lymphadenopathy, thyromegaly Respiratory exam: PRESENT: clear to auscultation bandar. ABSENT: rales, rhonchi, wheezes Cardiovascular exam: PRESENT: RRR. ABSENT: diastolic murmur, rubs, systolic murmur GI/Abdominal exam: PRESENT: normal bowel sounds, soft. ABSENT: distended, guarding, mass, organolmegaly, rebound, tenderness Extremities exam: PRESENT: full ROM. ABSENT: calf tenderness, clubbing, pedal edema Neurological exam: PRESENT: alert, awake, oriented to person, oriented to place, oriented to time, oriented to situation, CN II-XII grossly intact. ABSENT: motor sensory deficit Psychiatric exam: PRESENT: appropriate affect, normal mood. ABSENT: homicidal ideation, suicidal ideation Results Laboratory Results: 09/12/18 13:05 09/12/18 13:05 09/12/18 09/12/18 13:05 13:05 WBC 12.5 H RBC 4.43 Hgb 13.7 Hct 39.5 MCV 89 MCH 30.9 MCHC 34.8 RDW 13.4 Plt Count 207 Seg Neutrophils % 75.5 Lymphocytes % 16.3 Monocytes % 7.3 Eosinophils % 0.7 Basophils % 0.2 Absolute Neutrophils 9.5 H Absolute Lymphocytes 2.0 Absolute Monocytes 0.9 Absolute Eosinophils 0.1 Absolute Basophils 0.0 Sodium 139.8 Potassium 3.4 L Chloride 104 Carbon Dioxide 26 Anion Gap 10 BUN 10 Creatinine 0.78 Est GFR ( Amer) > 60 Est GFR (Non-Af Amer) > 60 Glucose 111 H Calcium 9.0 Total Bilirubin 0.6 AST 25 ALT 36 Alkaline Phosphatase 110 Total Protein 5.8 L Albumin 3.8 09/12/18 09/12/18 13:05 13:05 Creatine Kinase 68 CK-MB (CK-2) 1.69 Troponin I < 0.012 Impressions: Chest X-Ray 09/12/18 12:43 IMPRESSION: NO ACUTE RADIOGRAPHIC FINDING IN THE CHEST. Head CT 09/12/18 12:43 IMPRESSION: CHRONIC CHANGES OF ATROPHY AND MICROVASCULAR ISCHEMIA. NO ACUTE PROCESS. EVIDENCE OF ACUTE STROKE: NO. Assessment & Plan - Diagnosis (1) TIA (transient ischemic attack) Is this a current diagnosis for this admission?: Yes Plan: 09/12/2018 plan for today is to place the patient in observation and telemetry. TIA core measures were implemented. She was started on aspirin, Plavix, atorvastatin 10 mg p.o. nightly. Swallowing study was negative. Neurochecks were requested every 4 hours for next 24 hours. She was placed on SCDs and Lovenox 40 mg subcu daily. Lipid panel was requested for tomorrow. Doppler echocardiogram was requested MRI of the head without contrast was requested. (2) Hypertension Is this a current diagnosis for this admission?: Yes Plan: Blood pressure today is 117/99-patient is on metoprolol 50 mg p.o. every 12 hours and hydrochlorothiazide 6.25 mg p.o. daily at home. And is to resume her home medications. Close monitoring of the blood pressures will be done during the hospital stay. (3) Hyperlipidemia Is this a current diagnosis for this admission?: Yes Plan: 09/12/2018 patient has history of hypercholesterolemia on simvastatin 20 mg p.o. nightly he was started on atorvastatin 10 mg p.o. nightly lipid panel was requested for tomorrow. (4) CVA (cerebral vascular accident) Is this a current diagnosis for this admission?: Yes Plan: 09/12/2018 patient has a history of CVA with left-sided weakness in 1999. On examination no residual effects are seen. And is taking Aggrenox and simvastati n at home. - Time Time Spent: 50 to 70 Minutes Medications reviewed and adjusted accordingly: Yes Anticipated discharge: Home
[2018-09-12 16:39] LABS: INTERNATIONAL RATION (INR) 0.96; PROTHROMBIN TIME 13.2 SEC (11.4-15.4)
--- NOTE | 2018-09-12 17:07 | EKG REPORT ---
SEVERITY:- NORMAL ECG - SINUS RHYTHM : Confirmed by: Lamont Velazquez MD 12-Sep-2018 17:06:31
[2018-09-12] MEDS ORDERED: LORAZEPAM INJ 2 MG/1 ML VIAL IV ONE (18:00)
[2018-09-12 18:20] LABS: APPEARANCE,URINE CLEAR; BILIRUBIN,URINE NEGATIVE (NEGATIVE); COLOR,URINE YELLOW; GLUCOSE, URINE NEGATIVE (NEGATIVE); KETONES,URINE NEGATIVE (NEGATIVE); LEUKOCYTE ESTERASE,URINE TRACE (NEGATIVE); NITRITE,URINE NEGATIVE (NEGATIVE); PROTEIN,URINE NEGATIVE (NEGATIVE); URINE SPECIFIC GRAVITY 1.006; UROBILINOGEN,URINE NEGATIVE mg/dL (<2.0)
--- NOTE | 2018-09-12 20:13 | RADIOLOGY REPORT (SQ) ---
EXAM DESCRIPTION: CAROTID DOPPLER COMPLETED DATE/TIME: 09/12/2018 8:03 pm REASON FOR STUDY: tia G45.8 OTH TRANSIENT CEREBRAL ISCHEMIC ATTACKS AND RELATED SY COMPARISON: 07/12/2017 TECHNIQUE: Grayscale ultrasound, Doppler velocity and spectra, and color Doppler images acquired of the extra-cranial carotid and vertebral arteries. Images stored on PACS. LIMITATIONS: None. FINDINGS: RIGHT CAROTID CCA Velocities: Within normal limits. ICA Velocities Peak systolic 93 cm/s. End diastolic 11 cm/s. Proximal ICA/CCA peak systolic ratio 0.8. Spectra normal. No significant plaque. LEFT CAROTID CCA Velocities: Within normal limits. ICA Velocities Peak systolic 150 cm/s. End diastolic 23 cm/s. Proximal ICA/CCA peak systolic ratio 1.8. Spectra normal. No significant plaque. VERTEBRAL ARTERIES: Antegrade flow. Normal waveforms. SUBCLAVIAN ARTERIES: No finding. OTHER: No other significant finding. IMPRESSION: NO HEMODYNAMICALLY SIGNIFICANT STENOSIS. COMMENT: Quality ID #[id number]: Velocity criteria are extrapolated from the diameter data as defined by t he Society of Radiologists in Ultrasound Consensus Conference. Radiology 2003: 229; 340-346. TECHNICAL DOCUMENTATION: JOB ID: [id number] [employer]- All Rights Reserved Reading location - IP/workstation name: [email or web address]
--- NOTE | 2018-09-12 21:33 | RADIOLOGY REPORT (SQ) ---
EXAM DESCRIPTION: MR BRAIN WITHOUT IV CONTRAST COMPLETED DATE/TME: 09/12/2018 00:00 CLINICAL HISTORY: 83 years, Female, confusion COMPARISON: CT brain 09/12/2018 TECHNIQUE: 358 Images stored on PACS. LIMITATIONS: None. FINDINGS: There is extensive motion artifact, as well as difficulty with patient positioning which makes the exam nearly nondiagnostic. Sagittal midline anatomic structures show a grossly unremarkable appearance to the pituitary and suprasellar regions. The globes are intact. Gradient sequences are nondiagnostic. T1 sequences show no convincing evidence for acute intracranial hemorrhage. Diffusion-weighted images are nearly nondiagnostic however subjective areas of diffusion restriction in the right temporoparietal region. Subjective areas of low signal on ADC map in the right temporoparietal region, however there is also areas of low signal in the left frontal region on ADC map. FLAIR sequences are nondiagnostic. T2 propeller sequences show normal flow void in visualized intracranial vessels. The visualized cranial nerve complexes are grossly unremarkable. Paranasal sinuses and mastoid air cells are well aerated. No discrete mass or midline shift. Areas of increased T2 signal in the periventricular and subcortical regions likely sequelae of small vessel ischemic change. Diffuse age-appropriate atrophy. IMPRESSION: The exam is nearly nondiagnostic, as above. Questionable areas of diffusion restriction in the right temporoparietal region, however diffusion sequences are significantly limited. FLAIR sequences are nondiagnostic. Gradient sequences are nondiagnostic. If the patient has a history of left-sided paralysis or weakness, vascular insult to the right temporoparietal region should be considered. Otherwise, no convincing evidence for acute intracranial abnormality. Diffuse atrophy. Extensive small vessel ischemic change. copyright 2010 [employer]- All Rights Reserved
[2018-09-12] MEDS ORDERED: ASPIRIN/DIPYRIDAMOLE 25-200 MG 1 CAP.SR CPMP.12HR PO SCH (22:00)
[2018-09-12] MEDS ORDERED: METOPROLOL SUCCINATE 50 MG TAB.SR.24H PO SCH (22:00)
[2018-09-12] MEDS ORDERED: ATORVASTATIN CALCIUM 10 MG TABLET PO SCH (22:00)
[2018-09-12] MEDS ORDERED: ATORVASTATIN CALCIUM 40 MG TABLET PO SCH (22:00)
[2018-09-12] MEDS: ASPIRIN/DIPYRIDAMOLE 25-200 MG 1 CAP.SR CPMP.12HR PO SCH (22:04)
[2018-09-12] MEDS: ENOXAPARIN SODIUM INJ 40 MG/0.4 ML DISP.SYRIN SUBCUT SCH (22:05)
[2018-09-12] MEDS: METOPROLOL SUCCINATE 50 MG TAB.SR.24H PO SCH (22:05)
[2018-09-12] MEDS: FAMOTIDINE 20 MG TABLET PO SCH (22:05)
--- NOTE | 2018-09-12 22:31 | XCELERA REPORT ---
[address] [address] Transthoracic Echocardiogram Report Name: CATINA VEGA Age: 83 yrs Gender: Female : 1935 Patient Status: Inpatient Patient Location: [place] [id number] Study Date: 09/12/2018 05:49 PM Height: 64 in Weight: 156 lb BSA: 1.8 m2 Procedure: A two-dimensional transthoracic echocardiogram with color flow and Doppler was performed. Study Quality: Poor. The study was technically difficult with many images being suboptimal in quality. Images were not obtained from all of the standard acoustic windows due to the limited scope of the study. Reason For Study: tia History: TIA. Ordering Physician: RADHA PATEL Performed By: Symone Taylor Interpretation Summary There is no obvious cardiac source of embolus noted on this transthoracic echocardiogram. Follow-up with a MARY is suggested if cardiac source is still suspected. The left ventricle is normal in size. There is normal left ventricular wall thickness. No True apical 2 chamber views obtained.Hence cannot comment on the apical anterior , the basal anterior, the basal inferior and apical inferior belcher.The mid anterior , the mid inferior and the rest of the LV belcher contract normally. .Normal LVEF is normal and is greater than 60% in the limited views. Doppler measurements suggest impaired left ventricular relaxation, which is associated with grade I/IV or mild diastolic dysfunction The right ventricle is not well visualized secondary to technical limitations Right atrium not well visualized secondary to technical limitations The left atrial size is normal. There is no evidence of mitral valve prolapse. There is no vegetation seen on the mitral valve. There is no mitral valve stenosis. There is a trace amount of mitral regurgitation There is no aortic valvular vegetation. There is no aortic valve stenosis There is no LVOT obstruction. There is aortic sclerosis without aortic stenosis. No aortic regurgitation is present. There is no tricuspid stenosis. There is a trace amount of tricuspid regurgitation Right ventricular systolic pressure is normal. RVSP is 20 to 25 mm of Hg , with RA mean of 5 to. The pulmonic valve is not well visualized. There is no pericardial effusion. There is no obvious cardiac source of embolus noted on this transthoracic echocardiogram. Follow-up with a MARY is suggested if cardiac source is still suspected MMode/2D Measurements & Calculations RVDd: 2.6 cm LVIDd: 3.5 cm FS: 31.0 % Ao root diam: 2.6 cm IVSd: 0.84 cm LVIDs: 2.4 cm EDV(Teich): 49.5 ml Ao root area: 5.4 cm2 LVPWd: 1.0 cm ESV(Teich): 19.9 ml LA dimension: 3.0 cm EF(Teich): 59.8 % Doppler Measurements & Calculations MV E max vandana: MV P1/2t max vandana: Ao V2 max: LV V1 max P.5 cm/sec 107.5 cm/sec 152.0 cm/sec 5.2 mmHg MV A max vandana: MV P1/2t: 81.0 msec Ao max PG: LV V1 max: 135.7 cm/sec MVA(P1/2t): 2.7 cm2 9.2 mmHg 113.5 cm/sec MV E/A: 0.55 MV dec slope: 388.5 cm/sec2 MV dec time: 0.35 sec TV V2 max: PA V2 max: TR max vandana: MV P1/2t-pr_phl: 88.2 cm/sec 91.2 cm/sec 193.3 cm/sec 81.0 msec TV max P.1 mmHgPA max P.3 mmHg TR max P.9 mmHg Left Ventricle The left ventricle is normal in size. There is normal left ventricular wall thickness. No True apical 2 chamber views obtained.Hence cannot comment on the apical anterior , the basal anterior, the basal inferior and apical inferior belcher.The mid anterior , the mid inferior and the rest of the LV belcher contract normally. .Normal LVEF is normal and is greater than 60% in the limited views. Doppler measurements suggest impaired left ventricular relaxation, which is associated with grade I/IV or mild diastolic dysfunction. There is no thrombus. Right Ventricle The right ventricle is not well visualized secondary to technical limitations. Atria Right atrium not well visualized secondary to technical limitations. The left atrial size is normal. Mitral Valve There is no evidence of mitral valve prolapse. There is no vegetation seen on the mitral valve. There is no mitral valve stenosis. There is a trace amount of mitral regurgitation. Aortic Valve There is no aortic valvular vegetation. There is no aortic valve stenosis. There is no LVOT obstruction. There is aortic sclerosis without aortic stenosis. No aortic regurgitation is present. Tricuspid Valve There is no tricuspid stenosis. There is a trace amount of tricuspid regurgitation. Right ventricular systolic pressure is normal. RVSP is 20 to 25 mm of Hg , with RA mean of 5 to. Pulmonic Valve The pulmonic valve is not well visualized. Great Vessels The aortic root is not well visualized. Effusions There is no pericardial effusion. : RADHA PATEL > Kyra Crump
[2018-09-13 05:25] LABS: ABSOLUTE EOSINOPHILS # (AUTO) 0.1 10^3/uL (0.0-0.6); ABSOLUTE LYMPHOCYTES (AUTO) 2.7 10^3/uL (0.5-4.7); ABSOLUTE MONOCYTES (AUTO) 0.8 10^3/uL (0.1-1.4); ABSOLUTE NEUT (AUTO) 6.1 10^3/uL (1.7-8.2); BASOPHILS % (AUTO) 0.2 % (0-2); EOSINOPHILS % (AUTO) 1.3 % (0-6); HEMATOCRIT 38.2 % (36.0-47.0); HEMOGLOBIN 13.3 g/dL (12.0-15.5); LYMPHOCYTES % (AUTO) 27.9 % (13-45); MEAN CORPUSCULAR HEMOGLOBIN 30.8 pg (27.0-33.4); MEAN CORPUSCULAR HGB CONC 34.8 g/dL (32.0-36.0); MEAN CORPUSCULAR VOLUME 89 fl (80-97); MONOCYTES % (AUTO) 8.2 % (3-13); PLATELET COUNT 178 10^3/uL (150-450); RED BLOOD COUNT 4.31 10^6/uL (3.72-5.28); RED CELL DISTRIBUTION WIDTH 13.2 % (11.5-14.0); SEGMENTED NEUTROPHILS % (AUTO) 62.4 % (42-78); TOTAL CELLS COUNTED % (AUTO) 100 %; WHITE BLOOD COUNT 9.9 10^3/uL (4.0-10.5)
[2018-09-13 05:53] LABS: ALANINE AMINOTRANSFERASE 36 U/L (9-52); ALBUMIN 3.1 g/dL (3.5-5.0); ALKALINE PHOSPHATASE 70 U/L (38-126); ASPARTATE AMINO TRANSFERASE 21 U/L (14-36); BILIRUBIN,DIRECT 0.2 mg/dL (0.0-0.4); BILIRUBIN,TOTAL 0.9 mg/dL (0.2-1.3); BLOOD UREA NITROGEN 11 mg/dL (7-20); CALCIUM 8.8 mg/dL (8.4-10.2); CHOLESTEROL 77.09 mg/dL (0-200); GLUCOSE 97 mg/dL (75-110); TOTAL PROTEIN 5.4 g/dL (6.3-8.2); TRIGLYCERIDES 78 mg/dL (<150)
[2018-09-13 05:59] LABS: CARBON DIOXIDE 30 mmol/L (22-30); CHLORIDE 106 mmol/L (98-107); SODIUM 138.6 mmol/L (137-145)
[2018-09-13] MEDS ORDERED: (PENDING PHARMACY ID) (Lansoprazole [Lansoprazole] 30 MG) PO SCH (06:00)
[2018-09-13 06:04] LABS: DIRECT LDL 40 mg/dL (<100)
[2018-09-13 06:10] LABS: ANION GAP 3 (5-19); POTASSIUM 2.8 mmol/L (3.6-5.0)
--- NOTE | 2018-09-13 07:56 | EKG REPORT ---
SEVERITY:- NORMAL ECG - SINUS RHYTHM : Confirmed by: Lamont Velazquez MD 13-Sep-2018 07:55:44
[2018-09-13] MEDS ORDERED: POTASSIUM CHLORIDE 20 MEQ/50 ML RTU IV SCH (08:30)
[2018-09-13 08:36] VITALS: BP 130/52
[2018-09-13] MEDS: METOPROLOL SUCCINATE 50 MG TAB.SR.24H PO SCH (09:21)
[2018-09-13] MEDS: FAMOTIDINE 20 MG TABLET PO SCH (09:21)
[2018-09-13] MEDS: POTASSIUM CHLORIDE 10 MEQ CAPSULE.ER PO SCH ×2 (09:21→11:21)
[2018-09-13] MEDS: ASPIRIN/DIPYRIDAMOLE 25-200 MG 1 CAP.SR CPMP.12HR PO SCH (09:22)
[2018-09-13] MEDS: ENOXAPARIN SODIUM INJ 40 MG/0.4 ML DISP.SYRIN SUBCUT SCH (09:30)
[2018-09-13] MEDS ORDERED: ASPIRIN 81 MG TABLET, ENT COATED PO SCH (10:00)
[2018-09-13] MEDS ORDERED: POTASSIUM CHLORIDE 20 MEQ/15 ML UDCUP PO SCH (10:00)
[2018-09-13] MEDS ORDERED: CLOPIDOGREL BISULFATE 75 MG TABLET PO SCH (10:00)
[2018-09-13] MEDS ORDERED: DOCUSATE SODIUM 100 MG CAPSULE PO SCH (10:00)
[2018-09-13] MEDS ORDERED: CYANOCOBALAMIN/FA/PYRIDOXINE TABLET PO SCH (10:00)
[2018-09-13] MEDS ORDERED: (PENDING PHARMACY ID) (Cyanocobalamin/Folic Ac/Vit B6 [Folbic Tablet] 1 TAB) PO SCH (10:00)
[2018-09-13] MEDS ORDERED: HYDROCHLOROTHIAZIDE 6.25 MG PO SCH (10:00)
--- NOTE | 2018-09-13 13:30 | PDOC DISCHARGE SUMMARY ---
General - Admit/Disc Date/PCP Admission Date/Primary Care Provider: 09/12/18 14:36 FABIO LONG MD Discharge Date: 09/13/18 - Discharge Diagnosis (1) TIA (transient ischemic attack) Is this a current diagnosis for this admission?: Yes Summary: 09/12/2018 plan for today is to place the patient in observation and telemetry. TIA core measures were implemented. She was started on aspirin, Plavix, atorvastatin 10 mg p.o. nightly. Swallowing study was negative. Neurochecks were requested every 4 hours for next 24 hours. She was placed on SCDs and Lovenox 40 mg subcu daily. Lipid panel was requested for tomorrow. Doppler echocardiogram was requested MRI of the head without contrast was requested. 09/13/2018-MRI of the brain without contrast was negative for acute changes. Carotid Doppler is negative for hemodynamically significant stenosis. Echocardiogram was normal study with normal EF. Neurochecks are negative during the hospital stay. Swallowing evaluation is normal. No acute events during the hospital stay. Patient is going home on with home health for outpatient physical therapy. She was strongly advised to follow-up with primary care physician in 3-5 days. Patient was strongly advised to continue Aggrenox/atorvastatin. (2) Hypertension Is this a current diagnosis for this admission?: Yes Summary: Blood pressure today is 117/99-patient is on metoprolol 50 mg p.o. every 12 hours and hydrochlorothiazide 6.25 mg p.o. daily at home. And is to resume her home medications. Close monitoring of the blood pressures will be done during the hospital stay. 09/13/2018 blood pressure today is 124/59 very well controlled with heart rate of 53. Patient is on metoprolol 50 mg every 12 hours hydrochlorothiazide 6.5 mg p.o. daily at home advised to continue her home medications. (3) Hyperlipidemia Is this a current diagnosis for this admission?: Yes Summary: 09/12/2018 patient has history of hypercholesterolemia on simvastatin 20 mg p.o. nightly he was started on atorvastatin 10 mg p.o. nightly lipid panel was r equested for tomorrow. 07/2019-patient has history of hypercholesterolemia she is on atorvastatin 40 mg p.o. nightly at at home advised her to continue the home medications. (4) CVA (cerebral vascular accident) Is this a current diagnosis for this admission?: Yes Summary: 09/12/2018 patient has a history of CVA with left-sided weakness in 1999. On examination no residual effects are seen. And is taking Aggrenox and simvastat in at home. 09/13/2018 patient has history of CVA with left-sided weakness in 1999. She is taking Aggrenox and atorvastatin 40 mg p.o. daily at home advised her to continue her home medications. (5) Hypokalemia Is this a current diagnosis for this admission?: Yes Summary: 09/13/2018 admission potassium is 3.4 on this morning is 2.8. She is was given a 80 mg of p.o. potassium x1 dose and also give her a prescription for potassium chloride 20 mcq p.o. twice daily for 10 days. Patient was advised to follow-up with primary care physician in 3-5 days for further lab work. - Additional Information Resuscitation Status: Full Code Discharge Diet: Cardiac Discharge Activity: Activity As Tolerated, Balance Activity w/Rest, Energy Conservation, Slowly Increase Activity, Supervised Activity Prescriptions: Potassium Chloride [Kaon-Cl 20 Meq/15 ml Udcup] 20 meq PO Q12 #20 udc Home Medications: Aspirin/Dipyridamole [Aspirin-Dipyridam ER 25-200 mg] 1 cap PO Q12 09/12/18 Atorvastatin Calcium [Lipitor 40 mg Tablet] 40 mg PO QHS 09/12/18 Cyanocobalamin/Folic AC/Vit B6 [Folbic Tablet] 1 tab PO DAILY 09/12/18 Lansoprazole 30 mg PO Q6AM 09/12/18 Metoprolol Succinate [Toprol Xl 50 mg Tab.sr] 50 mg PO Q12 09/12/18 Aspirin/Dipyridamole [Aggrenox 25 mg/200 mg Capsule SA] 1 cap.sr PO Q12 cpmp.12hr 09/13/18 Potassium Chloride [Kaon-Cl 20 Meq/15 ml Udcup] 20 meq PO Q12 #20 udc 09/13/18 History of Present Illness History of Present Illness: CATINA VEGA is a 83 year old female with history of ischemic stroke with left sided weakness in 1999, hypertension, hyperlipidemia came to the emergency room with complaints of slurred speech around 930 this morning. According to the patient she developed slurred speech all of a sudden not associated with headaches no dizziness no syncope no nausea no vomiting's no chest pain no sinus issues no visual problems no hearing problems but because of the history of previous stroke decided to came to the hospital for further evaluation. In the emergency room CT head was done which was negative she was given aspirin and medical consult was called for the admission. Patient denies any problem with bowel movements or urination. Patient denies any numbness and weakness of the upper or lower extremities. Physical Exam Vital Signs: Temp Pulse Resp BP Pulse Ox 97.9 F 65 16 130/52 H 100 09/13/18 11:34 09/13/18 11:34 09/13/18 11:34 09/13/18 08:34 09/13/18 11:34 Intake & Output 09/12/18 09/13/18 09/14/18 06:59 06:59 06:59 Weight 71.1 kg Head exam: PRESENT: atraumatic Eye exam: PRESENT: PERRLA Mouth exam: PRESENT: moist Neck exam: ABSENT: carotid bruit, JVD, lymphadenopathy, thyromegaly Respiratory exam: PRESENT: clear to auscultation bandar. ABSENT: rales, rhonchi, wheezes Pulses: PRESENT: normal dorsalis pedis pul GI/Abdominal exam: PRESENT: normal bowel sounds, soft. ABSENT: distended, guarding, mass, organolmegaly, rebound, tenderness Extremities exam: PRESENT: full ROM. ABSENT: calf tenderness, clubbing, pedal edema Neurological exam: PRESENT: alert, awake, oriented to person, oriented to place, oriented to time, oriented to situation, CN II-XII grossly intact. ABSENT: motor sensory deficit Psychiatric exam: PRESENT: appropriate affect, normal mood. ABSENT: homicidal ideation, suicidal ideation Results Laboratory Results: 09/13/18 04:29 09/13/18 04:29 09/12/18 09/12/18 09/13/18 13:05 17:55 04:29 WBC 9.9 RBC 4.31 Hgb 13.3 Hct 38.2 MCV 89 MCH 30.8 MCHC 34.8 RDW 13.2 Plt Count 178 Seg Neutrophils % 62.4 Lymphocytes % 27.9 Monocytes % 8.2 Eosinophils % 1.3 Basophils % 0.2 Absolute Neutrophils 6.1 Absolute Lymphocytes 2.7 Absolute Monocytes 0.8 Absolute Eosinophils 0.1 Absolute Basophils 0.0 Sodium 139.8 Potassium 3.4 L Chloride 104 Carbon Dioxide 26 Anion Gap 10 BUN 10 Creatinine 0.78 Est GFR ( Amer) > 60 Est GFR (Non-Af Amer) > 60 Glucose 111 H Calcium 9.0 Total Bilirubin 0.6 AST 25 ALT 36 Alkaline Phosphatase 110 Total Protein 5.8 L Albumin 3.8 Triglycerides Cholesterol LDL Cholesterol Direct VLDL Cholesterol HDL Cholesterol Urine Color YELLOW Urine Appearance CLEAR Urine pH 5.0 Ur Specific [place] 1.006 Urine Protein NEGATIVE Urine Glucose (UA) NEGATIVE Urine Ketones NEGATIVE Urine Blood SMALL H Urine Nitrite NEGATIVE Ur Leukocyte Esterase TRACE H Urine WBC (Auto) 4 Urine RBC (Auto) 0 09/13/18 04:29 WBC RBC Hgb Hct MCV MCH MCHC RDW Plt Count Seg Neutrophils % Lymphocytes % Monocytes % Eosinophils % Basophils % Absolute Neutrophils Absolute Lymphocytes Absolute Monocytes Absolute Eosinophils Absolute Basophils Sodium 138.6 Potassium 2.8 L* Chloride 106 Carbon Dioxide 30 Anion Gap 3 L BUN 11 Creatinine 0.79 Est GFR ( Amer) > 60 Est GFR (Non-Af Amer) > 60 Glucose 97 Calcium 8.8 Total Bilirubin 0.9 AST 21 ALT 36 Alkaline Phosphatase 70 Total Protein 5.4 L Albumin 3.1 L Triglycerides 78 Cholesterol 77.09 LDL Cholesterol Direct 40 VLDL Cholesterol 16.0 HDL Cholesterol 33 L Urine Color Urine Appearance Urine pH Ur Specific [place] Urine Protein Urine Glucose (UA) Urine Ketones Urine Blood Urine Nitrite Ur Leukocyte Esterase Urine WBC (Auto) Urine RBC (Auto) 09/12/18 09/12/18 13:05 13:05 Creatine Kinase 68 CK-MB (CK-2) 1.69 Troponin I < 0.012 Impressions: Head MRI 09/12/18 00:00 IMPRESSION: The exam is nearly nondiagnostic, as above. Questionable areas of diffusion restriction in the right temporoparietal region, however diffusion sequences are significantly limited. FLAIR sequences are nondiagnostic. Gradient sequences are nondiagnostic. If the patient has a history of left-sided paralysis or weakness, vascular insult to the right temporoparietal region should be considered. Otherwise, no convincing evidence for acute intracranial abnormality. Diffuse atrophy. Extensive small vessel ischemic change. copyright 2010 [employer]- All Rights Reserved Chest X-Ray 09/12/18 12:43 IMPRESSION: NO ACUTE RADIOGRAPHIC FINDING IN THE CHEST. Head CT 09/12/18 12:43 IMPRESSION: CHRONIC CHANGES OF ATROPHY AND MICROVASCULAR ISCHEMIA. NO ACUTE PROCESS. EVIDENCE OF ACUTE STROKE: NO. Carotid Doppler Study 09/12/18 15:11 IMPRESSION: NO HEMODYNAMICALLY SIGNIFICANT STENOSIS. Qualifiers - * PATIENT BEING DISCHARGED WITH ANY OF THE FOLLOWING DIAGNOSIS: No VTE patient discharged on overlapping Therapy?: Yes
== END 2018-09-13 12:14 | disposition home or self-care (01) ==
LOC: ER 12:41 → EH 14:36 → 3N 20:40
PROVIDERS: ADMIT Internal Medicine; ATTEND Internal Medicine
DX: G45.9 Transient cerebral ischemic attack, unspecified (principal); I10 Essential (primary) hypertension; E78.5 Hyperlipidemia, unspecified; I69.354 Hemiplegia and hemiparesis following cerebral infarction affecting left non-dominant side; E87.6 Hypokalemia; R11.0 Nausea; Z79.899 Other long term (current) drug therapy; Z79.02 Long term (current) use of antithrombotics/antiplatelets; Z79.82 Long term (current) use of aspirin; Z98.890 Other specified postprocedural states; Z82.3 Family history of stroke; R29.702 NIHSS score 2; Z90.710 Acquired absence of both cervix and uterus; Z98.51 Tubal ligation status
CPT/HCPCS: 93005 ×2; 99285; 96374; 36415 ×2; 82553; 82962; 82550; 85025 ×2; 85610; 85730; 80053 ×2; 81001; 84484; 80061; 93306; 93880; 70551; 71045; 70450; 93010 ×2; 97116; 97163; 97535; 97167; A9270 ×11; J1650 ×2; J2060; J3490 ×2